=== PATIENT | female | born 1960 | race Caucasian/White ===

== ENCOUNTER 2023-07-15 11:57 | Outpatient (CLI) | payer MEDICAID, SELFPAY | END 2023-07-15 11:58 | disposition home or self-care (01) | PROVIDERS: PCP Family Medicine; Visit Provider Family Medicine | DX: Z00.00 Encounter for general adult medical examination without abnormal findings (principal); M25.50 Pain in unspecified joint; R53.83 Other fatigue; Z13.6 Encounter for screening for cardiovascular disorders; Z79.1 Long term (current) use of non-steroidal anti-inflammatories (NSAID); Z78.9 Other specified health status | CPT/HCPCS: 80053; 80061; 82306; 82607; 82728 ==

== ENCOUNTER 2023-08-04 09:30 | Outpatient (RCR) | payer MEDICAID, SELFPAY ==
--- NOTE | 2023-05-12 10:30 | PT.OPEX ---
PT [facility] PT [facility] Eval Start: 05/11/23 14:44 Freq: Status: Active Protocol: Document 05/11/23 14:44 AMS (Rec: 05/11/23 17:51 AMS [id number]) E-signed By Sary Estrada PT Physical Therapy Outpatient Evaluation Insurance Information Recert Due Date 08/04/23 Insurance Name Medicaid,are Medical Diagnosis Right ITB syndrome Treating Diagnosis Right hip pain Muscle weakness Referring MD Brionna Evans Subjective Subjective Barbara is a 63-year-old female who is new to [facility] and presents with hip pain. Barbara reports 2 months ago had one of her typical lower back spasms which resolved with her doing her exercises along with taking her Toradol and methocarbamol. Yesterday, went on a run and last night started noting right hip pain followed with every 6- seconds right hip spasms. Did take her last dose of Toradol today which was helpful. Worried that she may have a stress fracture since she was out running yesterday. -Dr. Kira Ingram, 05/04/23, confirmed by patient Patient presents to physical therapy with 2-month history of right lateral hip pain, radiating into right lateral thigh and foot at times. This started gradually 2 months ago without any injury to low back, hip, or knee. She does have chronic history of low back pain and spasms/sciatic nerve pain down both legs, but this feels ?different?. Now, she denies low back pain, numbness, or tingling. She notices pain with sleeping on right side, going upstairs > downstairs, walking short distances, and jogging. On her run one week ago, she started having painful hip spasms. She was worried about stress fracture, so she went to urgent care, where they did X- rays, which were normal. She localizes pain into right lateral hip radiating down into right lateral foot and describes it as deep/sharp spasms/aching/shooting with stairs. Easing factors include biking, Toradol as needed, and sleeping on her back. Previous treatments include ice/heat, but this was not helpful. Her previous exercise routine was one hour per day of either biking, jogging, walking, yoga class, or weights, or a combination of all. She has stopped jogging since last week, as now even walking is painful. Pain Comments 2/10 at rest, 8/10 at worst Date of Last Physician Visit 05/04/23 Current Work Status Retired Preferred Name Barbara Precautions Treatment Precautions/Contraindications None Weight Bearing Status Full Weight Bearing Objective Other/Pertinent Objective Gait assessment: Pt ambulates with non-antalgic, heel-toe gait, mild left hip drop/ Trendelenburg due to R hip weakness. BALANCE Single leg stance: 10+ seconds bilaterally FUNCTIONAL MOBILITY Double leg squat: to 90 deg, no pain, glute dominant LUMBAR ROM: Full and pain-free, no change in symptoms with repeated flexion or extension KNEE ROM WNL END RANGE QUAD CONTROL Straight leg raise: WNL, no quad lag HIP ROM (R/L) Flexion: 120/120 Extension: 20/20 Internal Rotation: WNL External Rotation: 45/45 Abduction: WNL LE MMT: Hip flexion: R 4/5 L 5/5 Hip abduction: R */5, weak and painful, L 5/5 Hip extension: R 4+/5 L 5/5 Knee flexion: R 5/5 L 5/5 Knee extension: R 5/5 L 5/5 *pain in right lateral hip SPECIAL TEST Hip Labral/Intra-articular Pathology: -EVETTE: - -FADIR: - -Log Roll: + right Hip impingement: -Scour test: - -Titus: - Gluteal tendinopathy: -30-sec SLS test: - SI/lumbar: Slump: - Straight leg raise: - JOINT MOBILITY/PALPATION No TTP over lateral hip, posterior buttock or lumbar spine areas. Pt notes symptoms are deep TX: Patient was educated on anatomy, physiology as it relates to current condition and HEP with use of handout/ [employer]. Patient verbalizes understanding and agrees with POC/goals -Soreness rules with goal of symptoms returning to baseline within 24 hours and that evening -Discussed activity modification/going for short walks/continuing bike rides as tolerated, avoiding jogging until symptoms improving Pt educated in the following exercises to improve range of motion, tissue tolerance, and/ or strength with verbal/ tactile cues as necessary: Access Code: [email or web address] URL: [email or web address] Date: 05/11/2023 Prepared by: Sary Estrada Exercises - Clamshell - 1 x daily - 4 x weekly - 3 sets - 10-12 reps - Supine Bridge - 1 x daily - 4 x weekly - 3 sets - 12 reps - Hooklying Isometric Clamshell - 1 x daily - 7 x weekly - 3 sets - 30 seconds hold Functional Test Performed & Score LEFS: 53/80 Assessment Assessment/Impression Barbara is a 63 -year-old female who presents with concerns of subacute right lateral hip pain, radiating to lateral thigh and ankle, and moderate severity and irritability. Denies numbness, tingling, or back pain, although does have history of chronic LBP. Signs and symptoms are likely indicating / consistent with gluteal tendinopathy. Pt denies knee pain or sudden change in running routine when symptoms started, but does sometimes have painful hip spasms while running. X-rays done, which were normal. On exam, patient also demonstrates notable objective findings including full and pain-free knee/lumbar ROM, pain with resisted hip abduction, mild Trendelenburg, and decreased lateral hip strength, leading to difficulties with jogging, walking, going upstairs > downstairs, and standing for longer periods. We discussed activity modification and soreness guidelines; may continue bike rides, as this does not seem to bother symptoms, and short walks as symptoms tolerate. Patient is appropriate for skilled physical therapy services to address the above deficits. Pt was agreeable with plan of care and goals established. Primary Functional Limitations jogging, walking, going upstairs > downstairs, and standing for longer periods Plan of Care Rehabilitation Potential Good Physical Therapy Goals In 2 sessions: Pt will demonstrate consistent HEP compliance to ensure progress in reaching established goals during course of care. In 8 sessions: Pt will return to walking >2 miles without increase in hip symptoms for ability to return to desired recreational activities. Pt will return to jogging >2 miles without increase in hip symptoms for ability to return to desired recreational activities. Pt will ascend and descend stairs with <2/10 hip symptoms for improved ability to perform ADLs. Pt will improve LEFS by 20% for meaningful improvement in symptoms. Coordination/Communication With Referral Source Treatment Plan/Direct Interventions Gait Training,Joint Mobilization,Manual Therapy, Neuromuscular Re-ed,Self-Care/ Home Management,Therapeutic Activities,Therapeutic Exercises Frequency/Duration 1x/week for 8 sessions Patient Will Be Discharged From Therapy Completion of LTG(s), Independent w/HEP, Independently Progressing Evaluation Billing Untimed Code Treatment Minutes 25 Complexity Low Certification Information Initial Certification Date 05/11/23 Ending Certification Date 08/04/23 Provider Signature Shows Agreement With POC & Medical Necessity Physician Signature & Date Requested Please Sign/Date Here Physician Comment/Change : Physician NPI Number #
--- NOTE | 2023-08-04 13:51 | PT.OPDNX ---
PT [facility] Daily Note PT [facility] Daily Note Start: 05/11/23 14:44 Freq: Status: Active Protocol: Document 08/04/23 07:54 AMS (Rec: 08/04/23 12:59 AMS [id number]) E-signed By Sary Estrada, PT PT [facility] Daily Progress Note Visit Information Note Type Daily Note,Recert/Progress Note Visit Number [id number] Insurance Information Recert Due Date 08/04/23 Insurance Name Medicaid,UCare Medical Diagnosis Right ITB syndrome Treating Diagnosis Right hip pain Muscle weakness Difficulty walking Referring MD Brionna Evans Subjective Subjective Patient arrives 3 min late. She reports she is noticing continued improvement in her hip symptoms. Ran half a mile without issue. Still on phase I of running program, as she has been nervous to progress/ overdo it. Sleeping is 50% better overall; painful spasms only last a minute at a time. Has to sleep on air mattress at sister's house, which is challenging. At this time, with everything going on in her life with her mom, she feels like she has the tools she needs to continue on independently with her HEP and call with any questions/concerns if they arise. She will follow up prn. Pain Comments 0/10 at rest, no pain 4/10 worst (except spasms, short seconds of increased >4/ 10) Preferred Name Barbara Precautions Treatment Precautions/Contraindications None Weight Bearing Status Full Weight Bearing Home Exercise Home Exercise Comments Access Code: [email or web address] URL: [email or web address] Date: 08/04/2023 Prepared by: Sary Estrada Program Notes Pick 3-4 exercises every other day.?Rules for progression:? No increase in pain/symptoms back to baseline that evening and next day, <4/10 pain Exercises - Side Plank with Full Arm Support - 1 x daily - 4 x weekly - 3 sets - 30-60 seconds hold - Side Stepping with Resistance at Feet - 1 x daily - 4 x weekly - 3 sets - 10 reps - Marching Bridge - 1 x daily - 4 x weekly - 3 sets - 10 reps - Lateral Step Down - 1 x daily - 4 x weekly - 3 sets - 10 reps - 8 step height - 5 lb weights weight - Single-Leg Vietnamese Deadlift With Kettlebell - 1 x daily - 4 x weekly - 2-3 sets - 10- 12 reps - 10-15 lbs weight - Sidelying Hip Abduction - 1 x daily - 4 x weekly - 2 sets - 8-10 reps Objective Other/Pertinent Objective Gait assessment: Pt ambulates with non-antalgic, heel-toe gait. BALANCE Single leg stance: 10+ seconds bilaterally, no pain HIP ROM (R/L) Flexion: 120/120 Extension: 20/20 Internal Rotation: WNL External Rotation: 45/45 Abduction: WNL Previous findings: LE MMT: Hip flexion: R 4/5 L 5/5 Hip abduction (today): R */5, mildly painful, L 5/5 Hip extension: R 4+/5 L 5/5 Knee flexion: R 5/5 L 5/5 Knee extension: R 5/5 L 5/5 *pain in right lateral hip SPECIAL TEST Hip Labral/Intra-articular Pathology: -EVETTE: - -FADIR: - -Log Roll: + right Piriformis test: - Hip impingement: -Scour test: - -Stinchfield: - Gluteal tendinopathy: -30-sec SLS test: - Knee: Nolen's Compression: - JOINT MOBILITY/PALPATION TTP over lateral hip/ITB, none over posterior buttock. Mildly increased tone lateral thigh. No TTP over lateral knee or epicondyle Functional Test Performed & Score LEFS: 53/80 at intial eval Patient Instructed in Risks/Benefits Yes Therapeutic Exercise Therapeutic Exercise Minutes (minutes) 40 Therapeutic Exercise: To Restore -Reassessment of objective Functional Status measures Education: -POC with review of goals and progress since start of PT -Expectations after d/c from PT and continued compliance to HEP -Discussed progressions and regressions of all exercises in HEP -Soreness rules with goal of symptoms returning to baseline within 24 hours and that evening Pt educated in the following exercises to improve tissue tolerance and/or strength with verbal/tactile cues as necessary: -Upright bike x 5 minutes, L5 -Sidelying hip abductions 2 x 15 reps, mild pain -Standing hip abduction machine, 3.5 plates, 2 x 12 reps B. No pain -Lateral step downs BL 2 x 12 reps, 6-8 step, 5 lb DBs -Prone hip extensions in plank on forearms x 8 reps BL -Marching bridges x 8 reps BL w/ full return to resting position b/w reps -Reviewed/updated HEP; patient instructed to pick 3-4 exercises every other day to complete as per reps on handout Treatment Minutes Timed Code Treatment Minutes 40 Total Treatment Time 40 Billing Units Therapeutic Exercise Units 3 Assessment/Impression Assessment/Impression Barbara presents to physical therapy with reports of overall continued improvement in right hip symptoms. Tolerates session well with only mild onset of pain with sidelying hip abductions/ marching bridges that resolved by end of session. Pt continues to deal with high amount of personal stress in her life with her mother's Alzheimer's and taking care of her, so pt would rather continue HEP independently and follow up in therapy prn. Will hold pt's chart open for 8 weeks and pt will call with questions/concerns as she works toward phase II of return to run program. Educated on duration of time it may take for tendinopathies to fully resolve (sometimes up to 12 months) and encouraged continued compliance to HEP per soreness guidelines. Would anticipate that patient will continue to progress well independently. Patient will follow up prn as able with her schedule at this time; if no return in 8 weeks , will formally discharge. Plan of Care Physical Therapy Goals In 2 sessions: Pt will demonstrate consistent HEP compliance to ensure progress in reaching established goals during course of care. MET In 8 sessions: Pt will return to walking >2 miles without increase in hip symptoms for ability to return to desired recreational activities. MET Pt will return to jogging >2 miles without increase in hip symptoms for ability to return to desired recreational activities. PROGRESSING Pt will ascend and descend stairs with <2/10 hip symptoms for improved ability to perform ADLs. MET Pt will improve LEFS by 20% for meaningful improvement in symptoms. PROGRESSING Pt will sleep with <2/10 pain and waking 0-1 times per night on right hip to improve sleep quality. PROGRESSING, less intense symptoms Daily Plan of Care Continue per POC Daily Plan of Care Comments Progress lateral hip/posterior chain strengthening as tolerated (small range --> larger range, non WB --> WB) Recertification Information Initial Certification Date 08/04/23 Recertification Start Date 08/04/23 Recertification Due Date 10/28/23 Reasons to Continue Skilled Therapy Patient is a 71 year old female that presents with chronic right hip symptoms related to likely gluteal tendinopathy. Patient reports >50% improvement with skilled physical therapy services. Patient has shown improvement in physical therapy, demonstrating decreased pain, increased strength (now roughly 4/5 hip abductor strength w/ pain), and increased tolerance to activity and load. Patient continues to present with pain , decreased strength, and decreased tolerance to activity. Patient would benefit from continued skilled PT services to address these issues and to maximize function. Pt continues to deal with high amount of personal stress in her life, so pt would rather continue HEP independently and follow up in therapy prn. Patient will follow up prn as able with her schedule at this time; if no return in 8 weeks, will formally discharge. Rehabilitation Potential Good Continued Plan of Care and Interventions Therapeutic exercise Neuromuscular Re-education Manual therapy Provider Signature Shows Agreement With POC & Medical Necessity
== END 2023-10-28 12:20 | disposition home or self-care (01) ==
PROVIDERS: Visit Provider Nurse Practitioner Family
DX: M76.31 Iliotibial band syndrome, right leg (principal); M25.551 Pain in right hip; M62.81 Muscle weakness (generalized); R26.2 Difficulty in walking, not elsewhere classified; Z51.89 Encounter for other specified aftercare
CPT/HCPCS: 97110; 97140; 97161

== ENCOUNTER 2023-08-27 15:04 | Outpatient (CLI) | payer MEDICAID, SELFPAY ==
--- NOTE | 2023-08-27 15:20 | CRLHL7_ITS ---
For Patients: As a result of the Cures Act, medical imaging exams and procedure reports are released immediately into your electronic medical record. You may view this report before your referring provider. If you have questions, please contact your health care provider. BILATERAL SCREENING MAMMOGRAM WITH COMPUTER-AIDED DETECTION AND TOMOSYNTHESIS TECHNIQUE: CC and MLO views were obtained. These mammographic images have been obtained using full-field digital technique. These mammographic images were interpreted with the benefit of computer-aided detection. Breast Tomosynthesis was used in this interpretation. COMPARISON FILM: 02/05/22. FINDINGS: The breasts are heterogeneously dense, which may obscure small masses IMPRESSION: There is no radiographic evidence for malignancy. ASSESSMENT: BI-RADS Category 2: Benign RECOMMENDATION: Routine screening mammogram in 1 year. A lay language report of this examination will be provided to the patient. Calli Mariano M.D. Diagnostic/Breast Radiologist [email or web address] FRANCIA/[email or web address] [email or web address]/Dictated by: Calli Mariano MD @ 09/03/2023 8:29:00 AM (Electronically Signed)
== END 2023-08-27 15:05 | disposition home or self-care (01) ==
LOC: MAMMO 15:05
PROVIDERS: PCP Family Medicine; Visit Provider Family Medicine
DX: Z12.31 Encounter for screening mammogram for malignant neoplasm of breast (principal); R92.2 Inconclusive mammogram
CPT/HCPCS: 77063; 77067

== ENCOUNTER 2024-05-03 14:45 | Outpatient (RCR) | payer MEDICAID, SELFPAY | END 2024-08-31 23:59 | disposition home or self-care (01) | PROVIDERS: PCP Family Medicine; Visit Provider Family Medicine | DX: M54.50 Low back pain, unspecified (principal); Z51.89 Encounter for other specified aftercare | CPT/HCPCS: 97110; 97140; 97162 ==

== ENCOUNTER 2024-09-09 11:23 | Outpatient (CLI) | payer MEDICAID, SELFPAY | END 2024-09-09 11:24 | disposition home or self-care (01) | LOC: NFLDREF 13:58 | PROVIDERS: PCP Family Medicine; Referring Provider Family Medicine; Visit Provider Family Medicine | DX: E55.9 Vitamin D deficiency, unspecified (principal); M81.0 Age-related osteoporosis without current pathological fracture; E78.5 Hyperlipidemia, unspecified; Z79.1 Long term (current) use of non-steroidal anti-inflammatories (NSAID); Z13.21 Encounter for screening for nutritional disorder; Z13.0 Encounter for screening for diseases of the blood and blood-forming organs and certain disorders involving the immune mechanism | CPT/HCPCS: 80053; 80061; 82306; 82607; 82728 ==

== ENCOUNTER 2025-08-16 13:00 | Outpatient (CLI) | payer OTHER, SELFPAY | END 2025-08-16 13:01 | disposition home or self-care (01) | PROVIDERS: PCP Family Medicine; Visit Provider Family Medicine | DX: E55.9 Vitamin D deficiency, unspecified (principal); R03.0 Elevated blood-pressure reading, without diagnosis of hypertension; Z78.9 Other specified health status; Z79.1 Long term (current) use of non-steroidal anti-inflammatories (NSAID) | CPT/HCPCS: 80053; 82306; 82607; 82728; 84439; 84443 ==